=== PATIENT | female | born 1980 | race Caucasian/White ===

== ENCOUNTER → 2017-04-03 | Outpatient (CLI) | payer OTHER ==
[~2017-04-03] MED LIST: ACCUNEB SO1.25 MG/1 INH; ALBUTEROL INH; ALIGN4 MG PO; ANASPAZ0.125 MG SL; ASPIRIN325 PO; AUGMENTIN 875875 MG PO; CIPRO500 MG PO; CIPROFLOXACIN500 M1 PO; COZAAR 25 MG TA25 M1 PO; DIFLUCAN150 MG PO; DOXYCYCLINE 10100 MG PO; EFFER-K 20 MEQ20 ME1 PO; EPIPEN 2-P0.3 MG/0.3 INJECTION; FLAGYL500 MG PO; HYDROCHLOROTHIA25 M2 PO; HYDROCODONE-AP1 EAC6 PO; IBUPROFEN 400400 M2 PO; IBUPROFEN 800800 M1 PO; LINZESS290 MCG PO; LOPRESSOR25 PO; METOPROLOL TART25 MG PO; MIRALAX17 GM PO; NEXIUM40 MG PO; ONDANSETRON HCL4 M2 PO; PERCOCET 5-3251 EACH PO; PHENERGAN 25 MG25 M1 PO; POTASSIUM20 PO; PREDNISONE 10 M10 MG PO; PREDNISONE 20 M20 M1 PO; PREVACID30 MG PO; PRILOSEC40 MG PO; PROCARDIA XL30 MG PO; PROTONIX40 M1 PO; PROZAC20 MG PO; TORADOL 10 MG T10 MG PO; TRAMADOL 50 MG50 MG PO; VENTOLIN HFA INH8 GM PO; VITAMIN D3400 UNIT PO; VITAMINS; WELLBUTRIN XL300 MG PO; XIFAXAN550 M1 PO; ZOFRAN4 MG PO; ZPAK PO; ZYRTEC10 M2 PO
--- NOTE | 2017-04-03 14:25 | 2DMMODE ---
[place] [address] 2 D/M-MODE ECHOCARDIOGRAM Name: MARY MCMULLEN Room: [facility]#: [id number] Admission: 04/03/17 Attend Phys: Adams Swartz, Discharge: Date of : 78 Date of Service: 04/03/17 1424 Report #: [id number] THIS REPORT FOR: //name// APPROVED REPORT Study performed: 04/03/2017 10:13:12 EXAM: Comprehensive 2D, Doppler, and color-flow Echocardiogram Patient Location: Out-Patient Status: routine BSA: 1.91 HR: 64 bpm BP: 115/75 mmHg Other Information Study Quality: Good Indications Dyspnea Hx. PFO closure 2D Dimensions LVEF(%): 70.55 (>50%) IVSd: 10.40 (7-11mm) LVOT Diam: 20.62 (18-24mm) LVDd: 46.05 mm PWd: 9.11 (7-11mm) Ascending Ao: 24.20 (22-36mm) LVDs: 27.69 (25-40mm) Aortic Root: 27.67 mm Acosta's LVEF: 70.55 % Volumes Left Atrial Volume (Systole) LA ESV Index: 21.40 mL/m2 Aortic Valve AoV Peak Sebas.: 1.20 m/s AO Peak Gr.: 5.80 mmHg LVOT Max P.53 mmHg AO Mean Gr.: 3.05 mmHg LVOT Mean P.28 mmHg LVOT Max V: 0.80 m/s AO V2 VTI: 24.42 cm LVOT Mean V: 0.52 m/s TOY (VTI): 2.66 cm2 LVOT V1 VTI: 19.43 cm Mitral Valve E/A Ratio: 1.31 [place] [address] 2 D/M-MODE ECHOCARDIOGRAM Name: MARY MCMULLEN Room: [facility]#: [id number] Admission: 04/03/17 Attend Phys: Adams Swartz, Discharge: Date of : 78 Date of Service: 04/03/17 1424 Report #: [id number] MV Decel. Time: 169.90 ms MV E Max Sebas.: 0.81 m/s MV PHT: 49.27 ms MVA (PHT): 4.47 cm2 TDI E/Lateral E': 4.76 E/Medial E': 6.23 Medial E' Sebas.: 0.13 m/s Lateral E' Sebas.: 0.17 m/s Pulmonary Valve PV Peak Sebas.: 1.16 m/s PV Peak Gr.: 5.42 mmHg Tricuspid Valve TR Peak Gr.: 12.74 mmHg RVSP: 17.74 mmHg Left Ventricle The left ventricle is normal size. There is normal LV segmental wall motion. There is normal left ventricular wall thickness. Left ventricular systolic function is normal. The left ventricular ejection fraction is within the normal range. LVEF is 55-60%. The left ventricular diastolic function is normal. Right Ventricle The right ventricle is normal size. The right ventricular systolic function is normal. Atria The left atrium size is normal. increased echoes along the interatrial septum consistent with a previous closure device The right atrium size is normal. Aortic Valve The aortic valve is normal in structure. No aortic regurgitation is present. There is no aortic valvular stenosis. Mitral Valve The mitral valve is normal in structure. Trace mitral regurgitation. No evidence of mitral valve stenosis. Tricuspid Valve The tricuspid valve is normal in structure. Trace tricuspid regurgitation. Pulmonic Valve The pulmonary valve is normal in structure. There [place] [address] 2 D/M-MODE ECHOCARDIOGRAM Name: MARY MCMULLEN Room: [facility]#: [id number] Admission: 04/03/17 Attend Phys: Adams Swartz, Discharge: Date of : 78 Date of Service: 04/03/17 1424 Report #: [id number] valvular regurgitation. Great Vessels The aortic root is normal in size. IVC is normal in size and collapses with >50% inspiration Pericardium There is no pericardial effusion. <Conclusion> Left ventricular systolic function is normal. The left ventricular ejection fraction is within the normal range. <ELECTRONICALLY SIGNED> By: Mamadou Garza MD, FACC 04/03/17 1424 1424 1424 Mamadou Garza MD, FACC /INF
== END ==
LOC: M.CRD 09:54
DX: R06.09 Other forms of dyspnea (principal)

== ENCOUNTER → 2017-06-19 | Outpatient (CLI) | payer OTHER | LOC: M.RAD 11:57 | DX: M25.551 Pain in right hip (principal); M25.531 Pain in right wrist; R10.31 Right lower quadrant pain ==

== ENCOUNTER 2017-07-10 22:02 | Inpatient (IN) | payer OTHER ==
[~2017-07-10] VITALS: Ht 170.2 cm; Wt 88.9 kg
[~2017-07-10 22:02] MED LIST changes: -EFFER-K 20 MEQ20 ME1 PO; -EPIPEN 2-P0.3 MG/0.3 INJECTION; -METOPROLOL TART25 MG PO; -PREDNISONE 10 M10 MG PO
[2017-07-10 22:03] VITALS: BP 147/96
[2017-07-10] MEDS ORDERED: METOPROLOL TART25 MG PO (22:09)
[2017-07-10] MEDS ORDERED: EFFER-K 20 MEQ20 ME1 PO (22:10)
[2017-07-10 23:55] LABS: ANION GAP 13 mmol/L (7-16); BUN 17 mg/dL (7-18); CHLORIDE 103 mmol/L (98-107); CO2 23 mmol/L (21-32); GLUCOSE 194 mg/dL (70-99); SODIUM 139 mmol/L (136-145)
[2017-07-10 23:57] LABS: POTASSIUM 2.5 mmol/L (3.5-5.1)
[2017-07-11] VITALS (8 sets, daily range): BP systolic 92–112; BP diastolic 38–54
[2017-07-11] LABS: ALBUMIN 3.9 g/dL (3.4-5.0); ALKALINE PHOSPHATASE 30 U/L (46-116); SGOT 17 U/L (15-37); SGPT 28 U/L (30-65); TOTAL BILIRUBIN 0.3 mg/dL (<0.1-1.0); TOTAL PROTEIN 7.2 g/dL (6.4-8.2); TROPONIN-I LEVEL <0.06 ng/mL (<0.06)
[2017-07-11 00:14] LABS: HEMOGLOBIN 13.3 gm/dL (12.0-15.0); MCH 31.4 pg (26.0-34.0); MCHC 34.1 g/dL (28.0-37.0); MCV 92.1 fL (80.0-100.0); MPV 9.5 fl. (7.2-11.1); RBC 4.23 mil/uL (4.20-5.00); RDW-CV 12.7 % (10.5-14.5); WBC 13.7 thou/uL (4.0-11.0)
--- NOTE | 2017-07-11 05:05 | NUR ---
PT. ADMITTED TO ROOM 2 ICU DIAGNOSIS ALLERGIC REACTION. PT. IS UNSURE WHAT CAUSED THE REACTION. ALERT AND ORIENTED. SINUS TACHY ON MONITOR. UP AD EMIR. PT. STATES SWELLING HAS GOTTEN "MUCH BETTER" SINCE ADMISSION TO ED. WILL CONTINUE TO MONITOR.
[2017-07-11] MEDS ORDERED: PREDNISONE 20 M20 M1 PO (07:23)
--- NOTE | 2017-07-11 10:45 | NUR ---
SPOKE WITH PT, SHE IS FEELING MUCH BETTER TODAY AND HOPES TO GO HOME LATER TODAY. 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 PT HAS HISTORY OF ALLERGIES AND ALWAYS HAS HER EPI PEN WITH HER. PT SAID SHE DOESN'T HAVE ANY MORE REFILLS ON HER EPI PEN RX FROM HER PCP, TOLD HER DR HERE WOULD GIVE HER A NEW RX. SHE SAID SHE HOPES HER INSURANCE WILL COVER A NEW PEN SINCE SHE JUST GOT ONE. GAVE PT TWO DIFFERENT RX DRUG DISCOUNT CARDS AND WEB SITE INFO ON TWO OTHER SITES POSSIBILITIES FOR A CHEAPER OPTION, SHE SAID HER COPAY IS $60 EACH TIME SHE GETS HER EPI PEN REFILLED. PT DENIES ANY OTHER DISCHARGE NEEDS.
--- NOTE | 2017-07-11 10:51 | EKG ---
[place] [address] ELECTROCARDIOGRAM REPORT Name: MARY MCMULLEN Room: [address] [place] .R.#: [id number] Admission: 07/10/17 Attend Phys: Kavon French MD Discharge: Date of : 78 Report #: [id number] THIS REPORT FOR: //name// 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 Metalizing: JEFFREY [place] : 1980 Requested By: Chapincito Kohler Order Number: [id number] MD: Mamadou Garza Measurements Intervals [place] Rate: 101 P: 20 [place]: 195 QRS: 31 QRSD: 99 T: 257 QT: 342 QTc: 444 Interpretive Statements Sinus tachycardia Inferior infarct, old Lateral leads are also involved Compared to ECG 01/12/2017 00:53:38 Prolonged QT interval no longer present Electronically Signed On 07-11-2017 10:50:55 CDT by Mamadou Garza [email or web address] <ELECTRONICALLY SIGNED> By: Mamadou Garza MD, [facility] 07/11/17 1050 2343 2343 Mamadou Garza MD, [facility] /EPI
[2017-07-11] MEDS ORDERED: EPIPEN 2-P0.3 MG/0.3 INJECTION (13:56)
[2017-07-11] MEDS ORDERED: PREDNISONE 10 M10 MG PO (13:58)
--- NOTE | 2017-07-11 15:35 | NUR ---
PT DISCHARGE INSTRUCTIONS GONE OVER WITH HER. NO QUESTIONS AT THIS TIME. 3 SCRIPTS SENT WITH PATIENT. ASSESSMENT CHARTED. NO COMPLAINTS OF PAIN. VSS THROUGHOUT THE SHIFT. PT UP AMBULATING WITHOUT DIFFICULTY THIS MORNING/AFTERNOON. PT EATING WITHOUT DIFFICULTY. DISCHARGED HOME WITH . PT AMBULATED FROM ROOM TO CAR WITH THE ASSISTANCE OF NURSING STAFF AT 1520
== END 2017-07-11 15:41 | disposition home or self-care (01) | DRG 916 ==
LOC: M.ERS 22:02 → M.ICU 23:32 → M.TBA-ER 23:32 → M.ICU 07-11 02:54
PROVIDERS: Emergency Medicine Emergency Medical Services; ADMIT Internal Medicine
DX: T78.09XA Anaphylactic reaction due to other food products, initial encounter (principal); R65.10 Systemic inflammatory response syndrome (SIRS) of non-infectious origin without acute organ dysfunction; I10 Essential (primary) hypertension; F41.9 Anxiety disorder, unspecified; I95.9 Hypotension, unspecified; E87.6 Hypokalemia; K58.0 Irritable bowel syndrome with diarrhea; Z86.73 Personal history of transient ischemic attack (TIA), and cerebral infarction without residual deficits; Z90.49 Acquired absence of other specified parts of digestive tract; Z88.8 Allergy status to other drugs, medicaments and biological substances; Z88.6 Allergy status to analgesic agent; Z91.012 Allergy to eggs; Z91.02 Food additives allergy status; Z91.040 Latex allergy status; Z91.011 Allergy to milk products; Z79.82 Long term (current) use of aspirin; Z79.899 Other long term (current) drug therapy

== ENCOUNTER → 2017-07-19 | Outpatient (CLI) | payer OTHER ==
[~2017-07-19] MED LIST changes: +EFFER-K 20 MEQ20 ME1 PO; +EPIPEN 2-P0.3 MG/0.3 INJECTION; +METOPROLOL TART25 MG PO; +PREDNISONE 10 M10 MG PO
[2017-07-19 15:06] LABS: CALCIUM 9.1 mg/dL (8.5-10.1); POTASSIUM 3.4 mmol/L (3.5-5.1)
== END ==
LOC: M.LAB 14:47
PROVIDERS: Internal Medicine
DX: E87.6 Hypokalemia (principal)

== ENCOUNTER → 2017-08-28 | Outpatient (CLI) | payer OTHER ==
[2017-08-28 09:36] LABS: CALCIUM 9.3 mg/dL (8.5-10.1); CREATININE 0.9 mg/dL (0.6-1.3); POTASSIUM 3.8 mmol/L (3.5-5.1)
== END ==
LOC: M.LAB 09:13
PROVIDERS: Internal Medicine
DX: E87.6 Hypokalemia (principal)

== ENCOUNTER 2018-01-02 06:25 | Emergency (ER) | payer OTHER ==
[~2018-01-02] VITALS: Ht 170.2 cm; Wt 69.8 kg
[2018-01-02 06:57] LABS: ABSOLUTE BASOPHILS 0.1 thou/uL (0.0-0.2); ABSOLUTE EOSINOPHILS 0.2 thou/uL (0.0-0.7); ABSOLUTE LYMPHOCYTES 1.7 thou/uL (0.8-5.3); ABSOLUTE MONOCYTES 0.8 thou/uL (0.0-1.2); BASOPHILS 0.4 %; EOSINOPHILS 1.2 %; HEMATOCRIT 39.9 % (37.0-47.0); HEMOGLOBIN 13.5 gm/dL (12.0-15.0); LYMPHOCYTES 13.1 %; MCH 31.5 pg (26.0-34.0); MCHC 33.8 g/dL (28.0-37.0); MCV 93.2 fL (80.0-100.0); MONOCYTES 6.5 %; MPV 9.7 fl. (7.2-11.1); NUCLEATED RBCS 0 /100WBC; PLATELET COUNT* 231 thou/uL (150-400); POLYS 78.8 %; RBC 4.29 mil/uL (4.20-5.00); RDW-CV 12.4 % (10.5-14.5); WBC 12.7 thou/uL (4.0-11.0)
[2018-01-02 07:05] LABS: CREATININE 0.9 mg/dL (0.6-1.3); POTASSIUM 3.7 mmol/L (3.5-5.1)
[2018-01-02 07:09] LABS: ALBUMIN 3.9 g/dL (3.4-5.0); TOTAL BILIRUBIN 0.7 mg/dL (<0.1-1.0); TOTAL PROTEIN 7.2 g/dL (6.4-8.2)
[2018-01-02 08:57] LABS: URINE BILIRUBIN NEGATIVE (Negative); URINE BLOOD 3+ (Negative); URINE CLARITY CLEAR; URINE COLOR YELLOW; URINE GLUCOSE-RANDOM NEGATIVE (Negative); URINE KETONES NEGATIVE (Negative); URINE LEUKOCYTES-REFLEX NEGATIVE (Negative); URINE NITRITE-REFLEX NEGATIVE (Negative); URINE PROTEIN NEGATIVE (Negative); URINE UROBILINOGEN 0.2 E.U./dl (0.2-1.0)
[2018-01-02 09:02] LABS: BACTERIA-REFLEX 1-9 Few /HPF (None Seen); CASTS None Seen /LPF (None Seen); MUCUS None Seen strn/LPF (None Seen); SQUAMOUS 4-10 Moderate /LPF (0-3); URINE WBC-REFLEX 0-5 Rare /HPF (0-5)
[2018-01-02 09:03] LABS: CRYSTALS None Seen /LPF (None Seen)
[2018-01-02 11:05] VITALS: BP 100/64
--- NOTE | 2018-01-03 12:31 | EKG ---
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 : 1980 Requested By: Dago Multani Order Number: [id number] MD: Andi Bowles Measurements Intervals [place] Rate: 64 P: 12 GA: 165 QRS: 35 QRSD: 89 T: 51 QT: 421 QTc: 435 Interpretive Statements Sinus rhythm Compared to ECG 07/10/2017 23:43:23 Sinus tachycardia no longer present Myocardial infarct finding no longer present Electronically Signed On 01-03-2018 12:31:39 PHARMACIST HELPER by Andi Bowles [email or web address] <ELECTRONICALLY SIGNED> By: Andi Bowles MD, [facility] 01/03/18 1231 0749 0749 Andi Bowles MD, FAC /EPI
== END 2018-01-02 11:06 | disposition home or self-care (01) ==
LOC: M.ERS 06:25
PROVIDERS: Emergency Medicine Emergency Medical Services
DX: R10.11 Right upper quadrant pain (principal); R10.13 Epigastric pain; K58.9 Irritable bowel syndrome, unspecified; I10 Essential (primary) hypertension; Z88.1 Allergy status to other antibiotic agents; Z91.012 Allergy to eggs; Z91.011 Allergy to milk products; Z91.013 Allergy to seafood; Z88.7 Allergy status to serum and vaccine; Z88.8 Allergy status to other drugs, medicaments and biological substances; Z91.018 Allergy to other foods; Z88.6 Allergy status to analgesic agent; Z86.73 Personal history of transient ischemic attack (TIA), and cerebral infarction without residual deficits; Z98.890 Other specified postprocedural states; Z90.49 Acquired absence of other specified parts of digestive tract

== ENCOUNTER → 2018-01-10 | Outpatient (CLI) | payer OTHER ==
[2018-01-10 14:22] LABS: HEMATOCRIT 40.5 % (37.0-47.0); HEMOGLOBIN 13.6 gm/dL (12.0-15.0); MCH 31.3 pg (26.0-34.0); MCHC 33.5 g/dL (28.0-37.0); MCV 93.4 fL (80.0-100.0); MPV 9.4 fl. (7.2-11.1); RBC 4.34 mil/uL (4.20-5.00); RDW-CV 12.4 % (10.5-14.5)
[2018-01-10 14:32] LABS: CALCIUM 9.1 mg/dL (8.5-10.1); CREATININE 0.9 mg/dL (0.6-1.3); POTASSIUM 3.5 mmol/L (3.5-5.1); TOTAL BILIRUBIN 0.2 mg/dL (<0.1-1.0); TOTAL PROTEIN 7.2 g/dL (6.4-8.2)
== END ==
LOC: M.LAB 14:02
PROVIDERS: Internal Medicine
DX: Z13.0 Encounter for screening for diseases of the blood and blood-forming organs and certain disorders involving the immune mechanism (principal); Z13.228 Encounter for screening for other metabolic disorders; R74.8 Abnormal levels of other serum enzymes

== ENCOUNTER 2019-11-05 20:37 | Observation (INO) | payer BC ==
[~2019-11-05] VITALS: Ht 170.2 cm; Wt 79.4 kg
[2019-11-05 20:39] VITALS: BP 138/66
[2019-11-05] MEDS ORDERED: PROTONIX40 M3 PO (20:48)
[2019-11-05] MEDS ORDERED: PEPCID20 MG PO (20:48)
[2019-11-05 21:05] LABS: ABSOLUTE BASOPHILS 0.1 thou/uL (0.0-0.2); ABSOLUTE EOSINOPHILS 0.1 thou/uL (0.0-0.7); ABSOLUTE LYMPHOCYTES 2.3 thou/uL (0.8-5.3); ABSOLUTE MONOCYTES 0.5 thou/uL (0.0-1.2); ABSOLUTE NEUTROPHILS 3.9 thou/uL (1.6-8.1); EOSINOPHILS 1.2 %; HEMATOCRIT 40.7 % (37.0-47.0); HEMOGLOBIN 14.4 gm/dL (12.0-15.0); LYMPHOCYTES 33.5 %; MCH 32.2 pg (26.0-34.0); MCHC 35.4 g/dL (28.0-37.0); MCV 91.1 fL (80.0-100.0); MONOCYTES 6.8 %; MPV 10.1 fl. (7.2-11.1); NUCLEATED RBCS 0 /100WBC; PLATELET COUNT* 197 thou/uL (150-400); POLYS 57.5 %; RBC 4.47 mil/uL (4.20-5.00); RDW-CV 12.4 % (10.5-14.5); WBC 6.8 thou/uL (4.0-11.0)
[2019-11-05 21:15] LABS: APTT 26.8 Seconds (25.0-31.3); PROTIME 10.2 Seconds (9.20-11.50)
[2019-11-05 21:19] LABS: CALCIUM 9.5 mg/dL (8.5-10.1); CREATININE 1.3 mg/dL (0.6-1.3); POTASSIUM 3.1 mmol/L (3.5-5.1)
[2019-11-05 21:28] LABS: ALBUMIN 4.4 g/dL (3.4-5.0); TOTAL BILIRUBIN 0.4 mg/dL (<0.1-1.0); TOTAL PROTEIN 7.5 g/dL (6.4-8.2)
[2019-11-06 00:09] VITALS: BP 132/85
[2019-11-06 00:12] VITALS: BP 132/85
[2019-11-06] MEDS ORDERED: ASA81BEC PO (00:37)
[2019-11-06 08:00] VITALS: BP 115/74
--- NOTE | 2019-11-06 10:12 | EKG ---
[place] [address] ELECTROCARDIOGRAM REPORT Name: MELIDAPhilipMARY Room: [address]#: [id number] Admission: 11/05/19 Attend Phys: Jj Montaño Discharge: Date of : 78 Date of Service: 11/05/192040 Report #: [id number] THIS REPORT FOR: //name// [facility] ED Test Date: 2019-11-05 Test Time: 20:41:22 Pat Name: MARY MCMULLEN Department: Room: [facility] Gender: F Court Manager: : 1980 Requested By: Ana Perez Order Number: [id number] MD: Mamadou Garza Measurements Intervals [place] Rate: 103 P: 54 SC: 210 QRS: 42 QRSD: 92 T: -17 QT: 350 QTc: 458 Interpretive Statements Sinus tachycardia Probable left atrial enlargement Borderline T abnormalities, inferior leads Compared to ECG 01/02/2018 07:49:07 T-wave abnormality now present Sinus rhythm no longer present Electronically Signed On 11-06-2019 10:12:11 CDT by Mamadou Garza [email or web address] <ELECTRONICALLY SIGNED> By: Mamadou Garza MD, FACC 11/06/19 1012 40 40 Mamadou Garza MD, FAC /EPI
[2019-11-06 11:21] LABS: ABSOLUTE BASOPHILS 0.1 thou/uL (0.0-0.2); ABSOLUTE EOSINOPHILS 0.1 thou/uL (0.0-0.7); ABSOLUTE LYMPHOCYTES 2.2 thou/uL (0.8-5.3); ABSOLUTE MONOCYTES 0.6 thou/uL (0.0-1.2); ABSOLUTE NEUTROPHILS 3.4 thou/uL (1.6-8.1); EOSINOPHILS 1.5 %; HEMATOCRIT 39.4 % (37.0-47.0); HEMOGLOBIN 13.6 gm/dL (12.0-15.0); LYMPHOCYTES 34.5 %; MCH 31.8 pg (26.0-34.0); MCHC 34.5 g/dL (28.0-37.0); MCV 92.3 fL (80.0-100.0); MONOCYTES 8.9 %; NUCLEATED RBCS 0 /100WBC; PLATELET COUNT* 189 thou/uL (150-400); POLYS 54.1 %; RBC 4.27 mil/uL (4.20-5.00); RDW-CV 12.4 % (10.5-14.5); WBC 6.3 thou/uL (4.0-11.0)
[2019-11-06 11:24] LABS: CREATININE 1.1 mg/dL (0.6-1.3); POTASSIUM 3.4 mmol/L (3.5-5.1)
[2019-11-06 12:00] VITALS: BP 114/72
[2019-11-06 13:37] VITALS: BP 114/72
--- NOTE | 2019-11-07 10:17 | CON ---
[address] [address] CONSULTATION Name: MARY MCMULLEN Room: [address] Dominik MRebeca#: [id number] Admission: 11/05/19 Attend Phys: Park Weber Discharge: 11/06/19 Date of : 78 Report #: [id number] THIS REPORT FOR: //name// cc: Rain Martin MD, K. 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 The patient has a long history of complaints of a rapid heartbeat. 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 She was eventually placed on metoprolol, which she took for several years and then discontinued it. Apparently, in 2003, she had some right-sided numbness and is felt to have a TIA. She eventually underwent percutaneous PFO closure by Dr. Munoz at [facility]. She has had no further TIA since that time. The patient stays very active, working out at the gym. Recently, however, she notes occasional episodes; when she exerts herself, her heart will beat fast. She has felt lightheaded. It can make her short of breath. Yesterday, she was at work, going up steps at the hospital when she felt her heart beating fast. According to her watch, her heart rate was 140. She went home and eventually drove herself to the Emergency Room. She is admitted for further evaluation and treatment. She has had a recent syncope. She has had no chest pain or edema. PAST MEDICAL HISTORY: She has had appendectomy, cholecystectomy, tonsillectomy, hysterectomy. She has a history of hypertension. No history of diabetes or hyperlipidemia. CURRENT MEDICATIONS: Include aspirin, Wellbutrin, Zyrtec, hydrochlorothiazide, Protonix, potassium. ALLERGIES: SHE HAS INTOLERANCE TO MORPHINE. FAMILY HISTORY: Her father has hypertension. SOCIAL HISTORY: She is . She and her live in [place], [place]. 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 [address] CONSULTATION Name: MARY MCMULLEN Room: [address]#: [id number] Admission: 11/05/19 Attend Phys: Park Weber Discharge: 11/06/19 Date of : 78 Report #: [id number] smoking. Rarely drinks alcohol. No caffeine. No illicit drug use. REVIEW OF SYSTEMS: She has had no history of GI bleeding. She has had asthma in the past; used an inhaler. No history of liver disease, kidney disease, cancer, psychiatric illness, chronic skin condition. PHYSICAL EXAMINATION: GENERAL: Middle-aged female, who appeared in no distress. VITAL SIGNS: She had a blood pressure of 130/60, pulse is 80, she is afebrile. HEENT: She was anicteric. Conjunctivae pink. Mucous membranes moist. NECK: Veins nondistended. No carotid bruits. Neck supple. CHEST: Clear to auscultation. CARDIAC: Regular rate and rhythm, no murmur. ABDOMEN: Soft. EXTREMITIES: Had no edema. Posterior tib pulse 2+ bilaterally. SKIN: Cool and dry. NEUROLOGIC: Nonfocal. RADIOLOGICAL DATA: ECG when she arrived to the Emergency Room last night showed a sinus tachycardia at 104 beats per minute with nonspecific ST-segment changes. On the monitor last night, she was in a sinus rhythm. LABORATORY WORK: Sodium was 137, potassium 3.4, BUN 16, creatinine 1.1. Liver function studies are normal. Troponins all 0.06. TSH 2.3. Her white blood cell count 6.3, hemoglobin 13.6. The patient had a chest x-ray last night that showed normal heart size, clear lung garcia. She had an echocardiogram done in 2018 that showed normal heart size. Previous stress echo in 2017 showed no evidence of ischemia. IMPRESSION AND RECOMMENDATIONS: 1. Palpitations. No significant arrhythmia noted. I would consider discharging the patient with an event recorder. 2. Hypertension. The patient has been on a diuretic. 3. Previous percutaneous closure of patent foramen ovale. No recent transient ischemic attacks. 4. History of Raynaud syndrome. <ELECTRONICALLY SIGNED> By: Mamadou Garza MD, [facility] 11/07/19 1017 1148 1228Davipark Garza MD, FAC /nt
== END 2019-11-06 15:15 | disposition home or self-care (01) ==
LOC: M.ERS 20:37 → M.2W 22:39 → M.TBA-ER 22:39 → M.2W 23:58
PROVIDERS: Internal Medicine; Personal Emergency Response Attendant; ADMIT Internal Medicine; ATTEND Internal Medicine
DX: R00.2 Palpitations (principal); R07.89 Other chest pain; R00.0 Tachycardia, unspecified; E87.6 Hypokalemia; I10 Essential (primary) hypertension; F41.9 Anxiety disorder, unspecified; I73.00 Raynaud's syndrome without gangrene; Z79.82 Long term (current) use of aspirin; Z79.899 Other long term (current) drug therapy; Z86.73 Personal history of transient ischemic attack (TIA), and cerebral infarction without residual deficits; Z20.828 Contact with and (suspected) exposure to other viral communicable diseases; Z87.74 Personal history of (corrected) congenital malformations of heart and circulatory system

== ENCOUNTER → 2020-10-14 | Day surgery (SDC) | payer BC ==
[~2020-10-14] MED LIST changes: +ASA81BEC PO; +IBU400 MG PO; +KLOR-CON 10 ER10 MEQ PO; +PEPCID20 MG PO; +PROTONIX40 M3 PO; +TYLENOL325 MG PO
[2020-10-14 14:30] LABS: HEMATOCRIT 40.6 % (37.0-47.0); HEMOGLOBIN 13.9 gm/dL (12.0-15.0); MCH 31.1 pg (26.0-34.0); MCHC 34.4 g/dL (28.0-37.0); MCV 90.4 fL (80.0-100.0); MPV 9.3 fl. (7.2-11.1); RBC 4.49 mil/uL (4.20-5.00); RDW-CV 12.3 % (10.5-14.5); WBC 6.1 thou/uL (4.0-11.0)
[2020-10-14 14:38] LABS: CALCIUM 8.9 mg/dL (8.5-10.1); CREATININE 0.9 mg/dL (0.6-1.3); POTASSIUM 3.2 mmol/L (3.5-5.1)
--- NOTE | 2020-10-19 09:38 | OP ---
[address] [address] OPERATIVE REPORT Name: MARY MCMULLEN Room: [facility].#: [id number] Admission: 10/14/20 Attend Phys: Lanette Shane DO Discharge: Date of : 78 Report #: [id number] THIS REPORT FOR: cc: Rain Martin MD, K. Gay MD Brock, Christie M. DO ~ DATE OF SURGERY: 10/14/2020 PREPROCEDURE DIAGNOSIS: Left back mass. POSTPROCEDURE DIAGNOSIS: Left back mass. FINDINGS: Left back lipoma, 5 x 3 x 1, incision is 5 cm depth in muscle fascia. SURGEON: Lanette Shane DO CO-SURGEON: Noe Stevens, PGY-2 TUNNEL ELASTIC OPERATOR CHAINSTITCH: Ernesto MS4 PROCEDURE PERFORMED: Excision of back mass. ANESTHESIA: LMA and local. ESTIMATED BLOOD LOSS: 5 mL. DRAINS: None. SPECIMENS: Lipoma of the back. COMPLICATIONS: None. CONDITION: Stable. OUTCOME: PACU to home. INDICATIONS FOR PROCEDURE: The patient is a mario 40-year-old female who presented to my office with an enlarging painful mass of the left lower back. On exam, she had what felt to be a lipoma, but it felt quite deep. It was approximately 4-5 cm. She was then consented for excision of this area. We discussed included bleeding, infection, pain, scar formation, recurrence and risks of general anesthesia. The patient understood these risks and elected to proceed. DESCRIPTION OF PROCEDURE: The patient was brought to the operating room. She stayed supine on the operating room table. Anest[place] [address] OPERATIVE REPORT Name: MARY MCMULLEN Room: [facility].#: [id number] Admission: 10/14/20 Attend Phys: Lanette Shane DO Discharge: Date of : 78 Report #: [id number] extremities. Ancef was given in the perioperative period. LMA anesthesia was induced by Anesthesia without difficulty. The patient was then placed in the right lateral recumbent position with all pressure points adequately cushioned on a beanbag. Left back was prepped and draped in the standard sterile fashion. Time-out was performed to verify the patient and procedure. Mass was marked out, a 20 mL of 0.5% Marcaine were injected along the area of the planned incision. A 5 cm incision was made with 15 blade. Cautery was used for hemostasis. Cautery was then used to dissect down through the subcutaneous tissues. The mass was deeper than the subcutaneous tissues and appeared to be just under a layer of muscle fascia. Muscle fascia was incised and then we were easily able to see the lipoma. The lipoma did have several fingers and was not well encapsulated. The entirety of the lipoma was completely excised down to the posterior layer of muscle fascia. The specimen was handed off, it measured 5 x 3 x 1 cm. Hemostasis was assured within the wound. Muscle fascia was closed with a 3-0 Vicryl. The wound itself was then closed in a layered fashion using deep and superficial stitches of 3-0 Vicryl in inverted interrupted fashion. Skin wound was closed with a running 4-0 Monocryl. A total of 30 mL of 0.5% Marcaine were used to anesthetize the wound. The wound was cleansed and covered with Dermabond. The patient was allowed to awaken from anesthesia, was extubated and transported to the recovery room with no further difficulties. Counts were correct at the conclusion of the case. <ELECTRONICALLY SIGNED> By: Lanette Shane DO 10/19/20 0938 1438 1632Cmariah Shane DO /nt
--- NOTE | 2020-10-19 12:06 | PATH ---
[address] [address] PATHOLOGY RPT PROCEDURE Name: MARY MCMULLEN Room: [facility]#: [id number] Admission: 10/14/20 Date of : 78 Discharge: Report #: [id number] Path Case #: [id number] [facility] Accession Number: [id number] . 01 Material submitted: . back - BACK LIPOMA . 01 Clinical history: . MASS LEFT LOWER BACK . 02 Diagnosis: Back lipoma: - Lipoma. . (NATALIA:mm; 10/18/2020) [facility] 10/18/2020 1104 Local . 02 Electronically signed: . Isaac Lim MD, Pathologist NPI- [id number] . 01 Gross description: . Fixative: Formalin Labeled: Back lipoma Specimen received: One piece of yellow-brown lobulated soft tissue Dimensions: 8.3 x 2.1 x 1.4 cm External surface: Lobulated and focally encapsulated, focally ragged The external surface is inked black. Cut surface: Yellow-brown and lobulated . Thread Tool Grinder Set Up Operator sections are submitted in A1-A4, with 2 sections in each cassette. ([facility]; 10/17/2020) [facility] 10/17/2020 1141 Local . 02 Pathologist provided ICD-10: D17.1 . 02 CPT . 586172 Specimen Comment: A courtesy copy of this report has been sent to [phone], [phone] Specimen Comment: [id number] Specimen Comment: Report sent to / DR GORDON Specimen Comment: A duplicate report has been generated due to demographic updates. Performed at: [address] [id number] [place] [address] PATHOLOGY RPT PROCEDURE Name: MARY MCMULLEN Room: [facility]#: [id number] Admission: 10/14/20 Date of : 78 Discharge: Report #: [id number] Path Case #: [id number] MD Iglesia Gee MD Phone: [phone] Performed at: [address] [address] [address], [place], [place] [id number] MD Isaac Lim MD Phone: [phone]
== END | disposition home or self-care (01) ==
LOC: M.SUR 13:40
PROVIDERS: ATTEND Surgery
DX: D17.1 Benign lipomatous neoplasm of skin and subcutaneous tissue of trunk (principal); I10 Essential (primary) hypertension; F41.9 Anxiety disorder, unspecified; Z98.890 Other specified postprocedural states; Z79.899 Other long term (current) drug therapy; Z20.822 Contact with and (suspected) exposure to COVID-19; Z91.040 Latex allergy status

== ENCOUNTER 2021-01-06 08:57 | Emergency (ER) | payer BC ==
[~2021-01-06] VITALS: Ht 170.2 cm; Wt 74.8 kg
[2021-01-06] MEDS ORDERED: WELLBUTRIN 100100 MG PO (09:07)
[2021-01-06] MEDS ORDERED: PREDNISONE 20 M20 M1 PO (09:19)
[2021-01-06 10:00] VITALS: BP 122/92
== END 2021-01-06 10:00 | disposition home or self-care (01) ==
LOC: M.ERS 08:57
DX: T78.49XA Other allergy, initial encounter (principal); I10 Essential (primary) hypertension; Z90.711 Acquired absence of uterus with remaining cervical stump; Z86.73 Personal history of transient ischemic attack (TIA), and cerebral infarction without residual deficits; Z98.890 Other specified postprocedural states; Z90.89 Acquired absence of other organs; Z90.49 Acquired absence of other specified parts of digestive tract; Z79.899 Other long term (current) drug therapy; Z79.82 Long term (current) use of aspirin; Z91.012 Allergy to eggs; Z91.013 Allergy to seafood; Z88.8 Allergy status to other drugs, medicaments and biological substances; Z91.018 Allergy to other foods; Z88.7 Allergy status to serum and vaccine; Z91.040 Latex allergy status; X58.XXXA Exposure to other specified factors, initial encounter